=== PATIENT | female | born 1975 | race African-American/Black ===

== ENCOUNTER 2017-02-21 15:24 | Emergency (ER) | payer BC ==
[~2017-02-21] VITALS: Ht 170.2 cm; Wt 141.5 kg
[~2017-02-21 15:24] MED LIST: INSU100I10; INSU100I15; LOSA50TA2; METF-164
[2017-02-21 15:27] VITALS: Ht 170.2 cm; Wt 141.5 kg
[2017-02-21 17:45] LABS: BASOPHILS % 0.1 % (0.0-2.0); EOSINOPHILS # 0.3 10^3/ul (0.0-0.5); EOSINOPHILS % 1.9 % (0.0-7.0); HEMATOCRIT 34.8 % (37.0-47.0); HEMOGLOBIN 12.4 g/dl (12.0-16.0); LYMPHOCYTES # 4.2 10^3/ul (0.8-2.9); LYMPHOCYTES % 31.5 % (15.0-51.0); MEAN CORPUSCULAR HEMOGLOBIN 27.7 pg (29.0-33.0); MEAN CORPUSCULAR HGB CONC 35.6 g/dl (32.0-37.0); MEAN CORPUSCULAR VOLUME 77.7 fl (82.0-101.0); MEAN PLATELET VOLUME 11.3 fl (7.4-10.4); MONOCYTE # 0.7 10^3/ul (0.3-0.9); MONOCYTES % 5.3 % (0.0-11.0); NEUTROPHIL # 8.2 10^3/ul (1.6-7.5); NEUTROPHILS % 60.9 % (39.0-77.0); PLATELET COUNT 320 10^3/UL (140-415); RED BLOOD COUNT 4.48 10^6/ul (4.20-5.40); WHITE BLOOD COUNT 13.4 10^3/ul (4.8-10.8)
--- NOTE | 2017-02-21 17:46 | ERD ---
ER Documentation Chief Complaint Date/Time DATE: 02/21/17 TIME: 17:37 Chief Complaint heavy vaginal bleeding x 2 weeks HPI This is a 41-year-old female with history of irregular menses, DMII, HTN presents complaining of heavy vaginal bleeding for two weeks, soiling 5-6 pads per day. Patient denies abdominal or pelvic pain, 0/10. Patient admits to dizziness. Denies shortness of breath or chest pain. Patient states she has history of fibroids which were removed in 2012. ROS All systems reviewed and are negative except as per history of present illness. Medications Home Meds Active Scripts Docusate Sodium* (Colace*) 100 Mg Capsule, 100 MG PO DAILY, #30 CAP Prov:GERMÁN LOPEZ PA-C 02/21/17 Ferrous Sulfate* (Ferrous Sulfate*) 325 Mg Tabec, 325 MG PO DAILY, #30 TAB Prov:GERMÁN LOPEZ PA-C 02/21/17 Reported Medications Metformin Hcl* (Fortamet*) 1,000 Mg/Bottle Tab.osm.24 01/15/11 Insulin Glargine,Hum.rec.anlog (Lantus Solostar) 100 Units/Ml Pen 01/15/11 Insulin Npl/Insulin Lispro (Humalog Mix 50-50 Kwikpen) 100 Units/Ml Pen 01/15/11 Losartan Potassium* (Cozaar*) 50 Mg Tablet 01/15/11 Allergies Allergies: Coded Allergies: doxycycline (Verified Allergy, Mild, 02/21/17) PMhx/Soc History of Surgery: Yes (TUBAL LIGATION 2004) Anesthesia Reaction: No Hx Neurological Disorder: No Hx Respiratory Disorders: No Hx Psychiatric Problems: No Hx Miscellaneous Medical Probl: No Hx Alcohol Use: Yes Hx Substance Use: No Hx Tobacco Use: No Smoking Status: Never smoker Physical Exam Vitals Vital Signs Date Time Temp Pulse Resp B/P Pulse Ox O2 Delivery O2 Flow Rate FiO2 02/21/17 15:27 98.6 107 20 141/76 96 Physical Exam GENERAL: well-developed/well-nourished, in no apparent distress, non-toxic appearing HENT: NC/AT, moist mucous membranes EYES: Conjunctiva normal. No pallor NECK: Supple, no lymphadenopathy PULM: CTA bilaterally, no rales, rhonchi, or wheezing heard CV: Normal S1S2, RRR, good capillary refill GI: Soft, non-distended, non-tender to palpation Normal bowel sounds, no masses or organomegaly felt on exam No gross peritonitis, no bruits Negative Rovsing, negative Richards, negative McBurney's point, Negative CVAT BACK: No masses EXT: No clubbing, cyanosis, or edema NEURO: Alert and Orientated SKIN: Intact, normal turgor PSYCH: Normal mood and mentation Result Diagram: 02/21/17 1733 Results 24 hrs Laboratory Tests Test 02/21/17 17:33 02/21/17 19:10 White Blood Count 13.410^3/ul Red Blood Count 4.4810^6/ul Hemoglobin 12.4g/dl Hematocrit 34.8% Mean Corpuscular Volume 77.7fl Mean Corpuscular Hemoglobin 27.7pg Mean Corpuscular Hemoglobin Concent 35.6g/dl Red Cell Distribution Width 15.0% Platelet Count 77388^3/UL Mean Platelet Volume 11.3fl Neutrophils % 60.9% Lymphocytes % 31.5% Monocytes % 5.3% Eosinophils % 1.9% Basophils % 0.1% Nucleated Red Blood Cells % 0.0/100WBC Neutrophils # 8.210^3/ul Lymphocytes # 4.210^3/ul Monocytes # 0.710^3/ul Eosinophils # 0.310^3/ul Basophils # 0.010^3/ul Nucleated Red Blood Cells # 0.010^3/ul Bedside Urine pH (LAB) 5.5 Bedside Urine Protein (LAB) 2+ Bedside Urine Glucose (UA) Negative Bedside Urine Ketones (LAB) Negative Bedside Urine Blood 3+ Bedside Urine Nitrite (LAB) Negative Bedside Urine Leukocyte Esterase (L Negative Procedures/MDM This is a 41-year-old female with a history of irregular menses, diabetes type 2 , hypertension with a history of fibroids that had been removed in 2012 presenting to the emergency department complaining of heavy vaginal bleeding for the past 2 weeks. Patient states that she uses 5-6 pads per day. At this time patient is hematuria stable and does not require any transfusion, hemoglobin is normal. Patient did have evidence of microcytic anemia and will be given prescription for ferrous sulfate and Colace. Patient is appropriate to be discharged home to follow-up with [facility] for further evaluation mentioned. There was no evidence of fibroid, ruptured ovarian cyst. Ultrasound was done and radiologist stated- Pelvic ultrasound: 1. Nonspecific thickened endometrium. Uterus otherwise unremarkable. 2. Ovaries not identified due to bowel gas. Urinalysis is unremarkable, urine unremarkable. Patient stable to be discharged. She understands and agrees with plan Departure Diagnosis: Primary Impression: Microcytic anemia Additional Impression: Excessive vaginal bleeding Condition: Stable GERMÁN LOPEZ PA-C Feb 21, 2017 17:46
--- NOTE | 2017-02-21 18:39 | RADRPT ---
PROCEDURE: US Pelvis CLINICAL INDICATION: Vaginal bleeding. TECHNIQUE: Sonographic evaluation of the pelvis was performed utilizing both transabdominal and tr ansvaginal technique. Images were reviewed on the high-resolution PACS workstation. COMPARISON: No prior studies are available for comparison. FINDINGS: The uterus is normal in size, echogenicity, and morphology. The uterus is 10.4 x 5.8 x 6.8 cm. The endometrium is thickened and homogeneous measuring 1.44 cm in diameter. Neither ovary is identified due to bowel gas. There are no adnexal masses. There is no free fluid in the pelvis. IMPRESSION: 1. Nonspecific thickened endometrium. Uterus otherwise unremarkable. 2. Ovaries not identified due to bowel gas. RPTAT: [facility]VK .Hunter Ibarra MD, MD Date Time Electronically viewed and signed by .Hunter Ibarra MD, MD on 02/21/2017 18:39 .K/
[2017-02-21] MEDS ORDERED: DOCU-144 PO (18:42)
[2017-02-21] MEDS ORDERED: FER325 PO (18:42)
[2017-02-21 19:05] LABS: URINE BLOOD (Dip) POC 3+ (NEGATIVE)
[2017-02-21] MEDS ORDERED: KETOROLAC 30 MG INJ IM STA (19:09)
== END 2017-02-21 20:30 | disposition home or self-care (01) ==
LOC: FTE 15:24
DX: D50.9 Iron deficiency anemia, unspecified (principal); E11.9 Type 2 diabetes mellitus without complications; I10 Essential (primary) hypertension; Z79.4 Long term (current) use of insulin; Z79.84 Long term (current) use of oral hypoglycemic drugs
CPT/HCPCS: 76830; 76856; 81003; 85025; J1885; 96372